=== PATIENT | female | born 1985 | race Caucasian/White ===

== ENCOUNTER 2018-05-09 05:33 | Day surgery (SDC) | payer OTHER ==
[~2018-05-09] VITALS: Ht 157.5 cm; Wt 93.8 kg
[2018-05-09] MEDS ORDERED: CYCL-259 PO (06:21)
[2018-05-09] MEDS ORDERED: ALPR0.25 PO (06:21)
[2018-05-09 06:31] VITALS: BP 108/77
[2018-05-09 06:33] LABS: HCG UR SG 1.029 (1.003-1.030)
[2018-05-09] MEDS ORDERED: MIDAZOLAM 1 MG/ML, 2ML ONE (06:42)
[2018-05-09] MEDS ORDERED: FENTANYL PF 250 MCG/5ML ONE (06:42)
[2018-05-09] MEDS ORDERED: ACETAMINOPHEN 500 MG TABLET PO ONE (07:00)
[2018-05-09] MEDS ORDERED: GABAPENTIN 300 MG CAPSULE PO ONE (07:00)
[2018-05-09] MEDS ORDERED: THROMBIN 5,000 UNIT VIAL TP ONE (07:02)
[2018-05-09] MEDS ORDERED: BACITRACIN 50,000 UNIT ONE (07:02)
[2018-05-09] MEDS ORDERED: BACITRACIN/POLYMIXIN B SULFATE OINT 14 GM ONE (07:02)
[2018-05-09] MEDS ORDERED: BUPIVACAINE/PF-EPI 0.5% 1:200K ONE (07:02)
[2018-05-09] MEDS ORDERED: PROMETHAZINE 25 MG/ML, 1ML IM PRN ×2 (07:30)
[2018-05-09] MEDS ORDERED: FENTANYL PF 100 MCG/2ML IV PRN (07:30)
[2018-05-09] MEDS ORDERED: OXYcodone 5 MG/5 ML ORAL.SOL UDC PO PRN (07:30)
[2018-05-09] MEDS ORDERED: MORPHINE SULFATE 4 MG/ML, 1ML IVPush PRN (07:30)
[2018-05-09] MEDS ORDERED: MEPERIDINE/PF 25MG/0.5ML IVPush PRN (07:30)
[2018-05-09] MEDS ORDERED: ONDANSETRON ODT 8 MG PO PRN (07:30)
[2018-05-09] MEDS ORDERED: hydrALAzine 20 MG/ML, 1ML IV PRN (07:30)
[2018-05-09] MEDS ORDERED: PROMETHAZINE 25 MG/ML, 1ML IV PRN (07:30)
[2018-05-09] MEDS ORDERED: ONDANSETRON 2MG/ML, 2ML IV PRN (07:30)
[2018-05-09] MEDS ORDERED: LABETALOL 5MG/ML, 20ML IV PRN (07:30)
[2018-05-09] MEDS ORDERED: DIAZEPAM 5 MG/ML, 2ML IVPush PRN (07:30)
[2018-05-09] MEDS ORDERED: PROMETHAZINE 12.5 MG SUPP PR PRN (07:30)
[2018-05-09] MEDS ORDERED: PROMETHAZINE 25 MG SUPP PR PRN (07:30)
[2018-05-09] MEDS ORDERED: PROPOFOL 10 MG/ML, 20ML ONE (08:27)
[2018-05-09] MEDS ORDERED: CEFAZOLIN 1,000 MG ONE (08:27)
[2018-05-09] MEDS ORDERED: ROCURONIUM 10MG/ML,5ML ONE (08:27)
[2018-05-09] MEDS ORDERED: ONDANSETRON 2MG/ML, 2ML ONE ×2 (08:27→09:47)
[2018-05-09] MEDS ORDERED: DEXAMETHASONE 4 MG/ML, 1ML ONE (08:27)
[2018-05-09] MEDS ORDERED: NEOSTIGMINE 1 MG/ML, 10ML ONE (08:27)
[2018-05-09] MEDS ORDERED: GLYCOPYRROLATE 0.2MG/1ML, 5ML ONE (08:27)
[2018-05-09] MEDS ORDERED: FENTANYL PF 100 MCG/2ML ONE (08:35)
[2018-05-09] MEDS ORDERED: HYDROmorphone 1 MG/ML, 1ML ONE ×2 (09:47→10:11)
[2018-05-09] MEDS: HYDROmorphone 2 MG/ML, 1ML IVPush PRN ×5 (09:59→10:35)
[2018-05-09] MEDS ORDERED: OXYcodone 5 MG/5 ML ORAL.SOL UDC ONE (10:11)
[2018-05-09] MEDS ORDERED: HYDROcodone/APAP 10/325 MG TABLET PO ONE (14:00)
== END 2018-05-09 14:00 | disposition home or self-care (01) ==
LOC: OUT 05:33
PROVIDERS: ATTEND Neurological Surgery
DX: M51.16 Intervertebral disc disorders with radiculopathy, lumbar region (principal)
CPT/HCPCS: 63030; 63035; 72100; 81025; C1760; J0690; J1100; J1170; J2250; J2405; J2550; J2704; J2710; J3010; J3490

== ENCOUNTER 2020-08-26 11:05 | Day surgery (SDC) | payer OTHER ==
[~2020-08-26] VITALS: Ht 157.5 cm; Wt 99.6 kg
[~2020-08-26 11:05] MED LIST: ALPR0.25 PO; CYCL10TA2 PO; MULT-449 PO
[2020-08-26 11:40] VITALS: BP 129/83
[2020-08-26 11:59] LABS: HCG UR SG 1.029 (1.003-1.030)
[2020-08-26] MEDS ORDERED: CHLORHEXIDINE 15 ML UDC PO ONE (12:00)
[2020-08-26] MEDS ORDERED: LACTATED RINGERS 1,000 ML IV SCH (12:00)
[2020-08-26] MEDS ORDERED: BUPIVACAINE/PF 0.5% ONE (12:02)
[2020-08-26] MEDS ORDERED: EPINEPHRINE 1 MG/ML, 1ML ONE (12:02)
[2020-08-26] MEDS ORDERED: VASOPRESSIN 20 UNIT/ML, 1ML ONE (12:02)
[2020-08-26] MEDS ORDERED: SODIUM CHLORIDE 0.9% 100 ML ONE (12:03)
[2020-08-26] MEDS ORDERED: SODIUM CHLORIDE 0.9% 0 ML ONE (12:03)
[2020-08-26 12:07] LABS: BASOPHILS % (AUTO) 1 % (0-1); EOSINOPHILS % (AUTO) 2 % (1-7); LYMPHOCYTES % (AUTO) 30 % (22-44); MEAN CORPUSCULAR HEMOGLOBIN 30.7 pg (27.0-34.8); MEAN CORPUSCULAR HGB CONC 34.4 g/dL (32.4-35.8); MEAN PLATELET VOLUME 8.3 fL (7.4-10.4); MONOCYTES % (AUTO) 6 % (2-9); NEUTROPHILS % (AUTO) 61 % (42-75); PLATELET COUNT 312 x10^3/uL (130-400); RED BLOOD COUNT 4.73 x10^6/uL (3.82-5.3); RED CELL DISTRIBUTION WIDTH 12.4 % (9.6-15.2)
[2020-08-26 12:15] LABS: MD NO
[2020-08-26 12:22] LABS: ALBUMIN 3.6 g/dL (3.4-5.0); ANION GAP 6 mmol/L (5-15); CALCIUM 8.6 mg/dL (8.5-10.1); CHLORIDE 107 mmol/L (98-107)
[2020-08-26 12:25] LABS: ALANINE AMINOTRANSFERASE 66 U/L (12-78); ALKALINE PHOSPHATASE 102 U/L (45-117); BILIRUBIN,TOTAL 0.4 mg/dL (0.2-1.0); CREATININE 0.62 mg/dL (0.55-1.02); TOTAL PROTEIN 6.9 g/dL (6.4-8.2)
[2020-08-26] MEDS ORDERED: SCOPOLAMINE 1MG PATCH TD ONE ×2 (12:26→12:30)
[2020-08-26] MEDS ORDERED: MIDAZOLAM 1 MG/ML, 2ML ONE (12:27)
[2020-08-26] MEDS ORDERED: FENTANYL PF 250 MCG/5ML ONE (12:28)
[2020-08-26] MEDS ORDERED: PROPOFOL 50 ML ONE (12:33)
[2020-08-26] MEDS ORDERED: KETOROLAC 30 MG/1 ML ONE (12:36)
[2020-08-26] MEDS ORDERED: LIDOCAINE/PF 1%-EPI 1:200K, 30 ML ONE (12:55)
[2020-08-26] MEDS ORDERED: BUPIVACAINE/PF-EPI 0.5% 1:200K INFIL ONE (12:55)
[2020-08-26] MEDS ORDERED: VASOPRESSIN 20 UNIT/ML, 1ML IM ONE (12:55)
[2020-08-26] MEDS ORDERED: ESTROGENS CONJUGATED VAG CRM 0.625MG/1G, 30GM ONE (12:55)
[2020-08-26] MEDS ORDERED: HYDROmorphone 1 MG/ML, 1ML INJ IVPush PRN (13:00)
[2020-08-26] MEDS ORDERED: PROMETHAZINE 25 MG/ML, 1ML IVPush PRN (13:00)
[2020-08-26] MEDS ORDERED: ACETAMINOPHEN 325 MG TABLET PO PRN (13:00)
[2020-08-26] MEDS ORDERED: LORazepam 2 MG/ML, 1ML IVPush PRN (13:00)
[2020-08-26] MEDS ORDERED: ALBUTEROL SULFATE 2.5 MG/3 ML NPPB PRN (13:00)
[2020-08-26] MEDS ORDERED: LABETALOL 5MG/ML, 20ML IV PRN (13:00)
[2020-08-26] MEDS ORDERED: hydrALAzine 20 MG/ML, 1ML IV PRN (13:00)
[2020-08-26] MEDS ORDERED: MEPERIDINE/PF 25MG/0.5ML IVPush PRN (13:00)
[2020-08-26] MEDS ORDERED: MANNITOL PMX 20% 500 ML ONE (13:08)
[2020-08-26] MEDS ORDERED: LIDOCAINE/PF 1%-EPI 1:200K, 30 ML INFIL ONE (13:15)
[2020-08-26] MEDS ORDERED: LIDOCAINE-MPF 2% ,5ML ONE (14:14)
[2020-08-26] MEDS ORDERED: DEXAMETHASONE 4 MG/ML, 1ML ONE (14:14)
[2020-08-26] MEDS ORDERED: PROPOFOL 10 MG/ML, 20ML ONE (14:14)
[2020-08-26] MEDS ORDERED: CEFAZOLIN 1,000 MG ONE (14:14)
[2020-08-26] MEDS ORDERED: ONDANSETRON 2MG/ML, 2ML ONE (14:14)
[2020-08-26] MEDS ORDERED: FENTANYL PF 100 MCG/2ML ONE (15:39)
[2020-08-26] MEDS: FENTANYL PF 100 MCG/2ML IV PRN ×2 (15:45→16:00)
[2020-08-26] MEDS ORDERED: OXYcodone 5 MG/5 ML ORAL.SOL UDC ONE (16:01)
[2020-08-26] MEDS: OXYcodone 5 MG/5 ML ORAL.SOL UDC PO PRN ×2 (16:20→17:00)
== END 2020-08-26 18:40 | disposition home or self-care (01) ==
LOC: OUT 11:05
PROVIDERS: ATTEND Obstetrics & Gynecology
DX: N92.0 Excessive and frequent menstruation with regular cycle (principal); N93.9 Abnormal uterine and vaginal bleeding, unspecified; N39.3 Stress incontinence (female) (male); N81.11 Cystocele, midline; N81.6 Rectocele; N32.89 Other specified disorders of bladder; J45.909 Unspecified asthma, uncomplicated; E78.5 Hyperlipidemia, unspecified; E66.01 Morbid (severe) obesity due to excess calories; Z20.822 Contact with and (suspected) exposure to COVID-19; Z68.39 Body mass index [BMI] 39.0-39.9, adult; Z79.899 Other long term (current) drug therapy; Z98.51 Tubal ligation status; Z98.890 Other specified postprocedural states
CPT/HCPCS: 36415; 57260; 57288; 58563; 80053; 81025; 85025; 87635; C1771; J0171; J0690; J1100; J1885; J2250; J2405; J2704; J3010; J7120